=== PATIENT | female | born 1955 | race Caucasian/White ===

== ENCOUNTER 2018-11-01 14:31 | Emergency (ER) | payer MEDICAID ==
[~2018-11-01] VITALS: Ht 144.8 cm; Wt 68.0 kg
[2018-11-01 15:02] VITALS: BP 116/75
== END 2018-11-01 15:21 | disposition home or self-care (01) ==
LOC: ER 14:41
DX: H69.81 Other specified disorders of Eustachian tube, right ear (principal)

== ENCOUNTER 2019-12-17 09:54 | Emergency (ER) | payer MEDICAID, OTHER ==
[~2019-12-17] VITALS: Ht 144.8 cm; Wt 65.3 kg
--- NOTE | 2019-12-17 09:55 | NUR ---
bibdaughter, c/o left flank pain since 4 am today 05/12 ps, +nausea, to ER bed 9, hooked to monitor, changed to hosp gown, warm blanket provided, patient aao x 4, breathing even and unlabored. Dr Mattson at bedside
[2019-12-17 10:22] LABS: APPEARANCE,URINE Clear (CLEAR); BASOPHILS % (AUTO) 0.3 % (0.0-2.0); BILIRUBIN,URINE Negative (NEGATIVE); BLOOD, URINE Trace-intact Ery/uL (NEGATIVE); COLOR,URINE Yellow (YELLOW); HEMATOCRIT 42 % (33-45); HEMOGLOBIN 14.5 g/dL (11.5-14.8); KETONES,URINE Negative (NEGATIVE); LEUKOCYTE ESTERASE ,URINE Negative (NEGATIVE); LYMPHOCYTES % (AUTO) 10.2 % (20.0-44.0); MEAN CORPUSCULAR HGB CONC 34 g/dl (31.0-36.0); MEAN CORPUSCULAR VOLUME 90 fL (82-100); MONOCYTES # (AUTO) 0.3 /CMM (0.1-1.30); MONOCYTES % (AUTO) 3.2 % (2.0-12.0); NEUTROPHILS # (AUTO) 8.4 /CMM (1.8-8.9); NEUTROPHILS % (AUTO) 85.3 % (43.0-81.0); NITRITE, URINE Negative (NEGATIVE); PLATELET COUNT (AUTO) 192 /CMM (150-450); PROTEIN,URINE Negative (NEGATIVE); RED BLOOD CELL COUNT(AUTO) 4.73 MIL/uL (4.0-5.2); UGLUCOSE Negative (NEGATIVE); UROBILINOGEN,URINE 0.2 EU/dL (0.2); WHITE BLOOD COUNT (AUTO) 9.8 K/uL (4.3-11.0)
[2019-12-17] MEDS ORDERED: KETOROLAC TROMETHAMINE 15 MG/ML VIAL ONE (10:23)
[2019-12-17] MEDS ORDERED: ONDANSETRON HCL/PF 4 MG/2 ML VIAL ONE (10:23)
[2019-12-17 10:24] LABS: BACTERIA,URINE Few /HPF (None Seen); RBC,URINE 0-2 /HPF (0-2); SQUAMOUS EPITHELIAL CELL,UR Few /HPF (None Seen); WBC,URINE 0-2 /HPF (0-3)
[2019-12-17] MEDS ORDERED: IV NS 0.9% 1,000 ML BAG IV ONE (10:30)
[2019-12-17] MEDS ORDERED: ONDANSETRON HCL/PF 4 MG/2 ML VIAL IVP ONE (10:30)
[2019-12-17] MEDS ORDERED: KETOROLAC TROMETHAMINE INJ 30 MG/ML VIAL IV ONE (10:30)
[2019-12-17 10:35] LABS: CALCIUM, SERUM 9.2 mg/dL (8.5-10.1); CARBON DIOXIDE 25 mmol/L (21-32); CHLORIDE 104 mmol/L (98-107); GLUCOSE 136 mg/dL (74-106); SODIUM SERUM 139 mmol/L (136-145); UREA NITROGEN, BLOOD 20 mg/dL (7-18)
[2019-12-17 10:41] LABS: ALANINE AMINOTRANSFERASE 29 U/L (12-78); ALBUMIN 4.3 g/dL (3.4-5.0); ALKALINE PHOSPHATASE 80 U/L (46-116); ASPARTATE AMINOTRANSFERASE 24 U/L (15-37); BILIRUBIN,DIRECT 0.1 mg/dL (0.0-0.2); BILIRUBIN,TOTAL 0.4 mg/dL (0.2-1.0); LIPASE 149 U/L (73-393); TOTAL PROTEIN, SERUM 7.6 g/dL (6.4-8.2)
--- NOTE | 2019-12-17 11:29 | NUR ---
IV removed. Catheter intact and site benign. Pressure and 4x4 applied to site. No bleeding noted.Patient discharged to home in stable condition. Written and verbal after care instructions given. Patient verbalizes understanding of instruction.
[2019-12-17 11:30] VITALS: BP 132/81
== END 2019-12-17 11:30 | disposition home or self-care (01) ==
LOC: ER 09:56
DX: N20.0 Calculus of kidney (principal)
CPT/HCPCS: 36415; 74176; 80048; 80076; 81001; 83690; 84484; 85025; 96374; 96375; 99284; J1885; J2405; J7030; 81000-TC

== ENCOUNTER 2019-12-20 09:56 | Inpatient (IN) | payer OTHER ==
[~2019-12-20] VITALS: Ht 170.2 cm; Wt 65.3 kg
--- NOTE | 2019-12-20 10:00 | NUR ---
c/o lower back pain since thursday, was here 3 days ago for same reason noted left kidney stone, 8/10 pain scale. Patient a/ox4, breathing even and unlabored, no sob noted. Needs attended.
[2019-12-20] MEDS ORDERED: KETOROLAC TROMETHAMINE 15 MG/ML VIAL ONE (10:05)
[2019-12-20] MEDS ORDERED: ONDANSETRON HCL/PF 4 MG/2 ML VIAL ONE (10:05)
[2019-12-20 10:16] LABS: BASOPHILS % (AUTO) 0.8 % (0.0-2.0); EOSINOPHILS % (AUTO) 1.3 % (0.0-6.0); HEMATOCRIT 40 % (33-45); HEMOGLOBIN 13.5 g/dL (11.5-14.8); LYMPHOCYTES # (AUTO) 1.1 /CMM (0.8-4.8); LYMPHOCYTES % (AUTO) 22.3 % (20.0-44.0); MEAN CORPUSCULAR HGB CONC 34 g/dl (31.0-36.0); MEAN CORPUSCULAR VOLUME 89 fL (82-100); MONOCYTES # (AUTO) 0.3 /CMM (0.1-1.30); MONOCYTES % (AUTO) 5.6 % (2.0-12.0); NEUTROPHILS # (AUTO) 3.4 /CMM (1.8-8.9); PLATELET COUNT (AUTO) 177 /CMM (150-450); RED BLOOD CELL COUNT(AUTO) 4.42 MIL/uL (4.0-5.2); WHITE BLOOD COUNT (AUTO) 4.8 K/uL (4.3-11.0)
[2019-12-20 10:23] LABS: CALCIUM, SERUM 9.1 mg/dL (8.5-10.1); CREATININE 0.7 mg/dL (0.6-1.3); POTASSIUM 3.9 mmol/L (3.5-5.1)
[2019-12-20 10:29] LABS: BILIRUBIN,DIRECT 0.1 mg/dL (0.0-0.2); BILIRUBIN,TOTAL 0.5 mg/dL (0.2-1.0); TOTAL PROTEIN, SERUM 7.4 g/dL (6.4-8.2)
[2019-12-20] MEDS ORDERED: IV NS 0.9% 1,000 ML BAG IV ONE (10:30)
[2019-12-20] MEDS ORDERED: ONDANSETRON HCL/PF 4 MG/2 ML VIAL IVP ONE (10:30)
[2019-12-20] MEDS ORDERED: KETOROLAC TROMETHAMINE INJ 30 MG/ML VIAL IV ONE ×2 (10:30→21:00)
--- NOTE | 2019-12-20 10:32 | NUR ---
CALLED DR. OJEDA [phone]. LEFT MSG.
[2019-12-20] MEDS ORDERED: ONDA-97 PO (10:49)
[2019-12-20] MEDS ORDERED: IBUP-1955 PO (10:49)
[2019-12-20] MEDS ORDERED: HYDR-3972 PO (10:49)
--- NOTE | 2019-12-20 11:07 | NUR ---
spoke to continuous pillowcase cutter, gave authorization.
[2019-12-20 11:30] LABS: APPEARANCE,URINE Clear (CLEAR); BILIRUBIN,URINE Negative (NEGATIVE); BLOOD, URINE Negative Ery/uL (NEGATIVE); COLOR,URINE Yellow (YELLOW); KETONES,URINE Negative (NEGATIVE); LEUKOCYTE ESTERASE ,URINE Negative (NEGATIVE); NITRITE, URINE Negative (NEGATIVE); PROTEIN,URINE Negative (NEGATIVE); UGLUCOSE Negative (NEGATIVE)
--- NOTE | 2019-12-20 11:39 | NUR ---
called nursing supervisor vegetable farming requested for med surg bed.
--- NOTE | 2019-12-20 11:40 | NUR ---
CALL DAUGHTER [phone] TOYA.
[2019-12-20 11:55] LABS: BACTERIA,URINE None seen /HPF (None Seen); RBC,URINE 0-2 /HPF (0-2); SQUAMOUS EPITHELIAL CELL,UR Few /HPF (None Seen); WBC,URINE 0-2 /HPF (0-3)
--- NOTE | 2019-12-20 12:13 | NUR ---
[id number] [facility]
--- NOTE | 2019-12-20 12:34 | NUR ---
REPORT GIVEN TO CHRISTINA MENDEZ.
--- NOTE | 2019-12-20 12:52 | NUR ---
wheeled patient via gurney accompanied by EMT in no distress. RN at bedside to assume care.
--- NOTE | 2019-12-20 13:00 | NUR ---
RN OPENING NOTES RECEIVED PATIENT VIA GURNEY FROM ED. PT IS AOX4, WELSH SPEAKING, AND AMBULATORY. SHE IS ON RA, TOLERATING WELL, NO SOB OR RESP DISTRESS. SKIN IS INTACT. LUNGS SOUND CLEAR BILATERALLY. ABDOMEN IS SOFT AND NON-DISTENDED. PT COMPLAINS OF ABDOMINAL PAIN THAT RADIATES TO LEFT BACK. EYES ARE PERRLA, FACIAL MOVEMENT SYMMETRICAL. SAFETY MEASURES HAVE BEEN IMPLEMENTED, CALL LIGHT IS WITHIN REACH, BED IS IN LOWEST AND LOCKED POSITION, CRISTAL DE [place]OR[place] FRUIT BUYING GRADER MADE AWARE OF PT ARRIVAL, WILL CONTINUE TO MONITOR FOR ANY CHANGES.
[2019-12-20 13:30] VITALS: BP 141/66
[2019-12-20 13:49] VITALS: BP 141/66
[2019-12-20 16:00] VITALS: BP 138/83
--- NOTE | 2019-12-20 16:09 | NUR ---
RN NOTES PT IS REPORTING PAIN OF 7/10 ON HER ABDOMEN RADIATING TO HER LEFT BACK. HOWEVER, NO ADMITTING ORDERS HAVE BEEN ENTERED YET. SENT MESSAGE AND PAGED EPIC, WILL CONTINUE TO MONITOR FOR ANY CHANGES.
[2019-12-20] MEDS: MORPHINE SULFATE INJ 2 MG/ML DISP.SYRIN IV PRN ×2 (16:50→18:59)
[2019-12-20] MEDS ORDERED: Z GUARD REMEDY 2 OZ OINT TP PRN (17:00)
[2019-12-20] MEDS ORDERED: MAGNESIUM HYDROXIDE 30 ML UDC PO PRN (17:00)
[2019-12-20] MEDS ORDERED: ONDANSETRON HCL/PF 4 MG/2 ML VIAL IVP PRN (17:00)
[2019-12-20] MEDS ORDERED: ACETAMINOPHEN 325 MG TABLET PO PRN (17:00)
[2019-12-20] MEDS: IV NS 0.9% 1,000 ML IV PRN (18:27)
--- NOTE | 2019-12-20 19:28 | NUR ---
RN OPENING NOTES PATIENT IS RESTING IN BED COMFORTABLY AT THIS TIME. NO S.SX OF DISTRESS AT THIS TIME. PT HAS BEEN ENDORSED TO NIGHTSHIFT RN FOR KANDY.
--- NOTE | 2019-12-20 19:35 | NUR ---
MS RN NOTES PATIENT RECEIVED IN BED RESTING. ALERT AND ORIENTED X 4, ESTONIAN SPEAKING. PATIENT ON ROOM AIR, WITH NO SIGNS OF RESPIRATORY DISTRESS AT THIS TIME, WITH NON-LABORED BREATHING. IV ACCESS INTACT AND PATENT. SKIN WARM AND DRY TO TOUCH. PROVIDED COMFORT MEASURES TO PATIENT. SAFETY PRECAUTIONS IN PLACE WITH BED IN THE LOWEST POSITION, BED LOCKED, BILATERAL SIDE RAILS UP, AND CALL LIGHT WITHIN EASY REACH OF THE PATIENT. WILL CONTINUE TO MONITOR PATIENT.
[2019-12-20 20:00] VITALS: BP 148/89
[2019-12-20] MEDS: KETOROLAC TROMETHAMINE INJ 30 MG/ML VIAL IV PRN (20:00)
--- NOTE | 2019-12-20 20:00 | NUR ---
MS RN NOTES PATIENT COMPLAINING OF SHARP PAIN, GRUNTING AND MOANING STATING PAIN LEVEL 10/10. ADMINISTERED PRN TORADOL 15mg. VITAL SIGNS BLOOD PRESSURE 148/89 HEART RATE 83, SPO2 99%. WILL CONTINUE TO MONITOR PATIENT.
--- NOTE | 2019-12-20 20:15 | NUR ---
MS RN NOTES PATIENT STILL MOANING AND RESTLESS, STATING HER PAIN LEVEL HAS NOT DECREASE. COMPLAINING OF SHARP PAIN. NOTIFIED MD CRISTAL DE [place]OR[place]. PER MD TO CHANGE THE FREQUENCY OF MORPHINE TO Q1H. AND GIVE ONE TIME DOSE OF TORADOL 15mg IV. WILL CONTINUE TO MONITOR PATIENT.
[2019-12-20] MEDS ORDERED: MORPHINE SULFATE INJ 2 MG/ML DISP.SYRIN IV PRN (21:00)
--- NOTE | 2019-12-21 03:45 | NUR ---
MS RN NOTES PATIENT COMPLAINING OF SHARP FLANK PAIN AND WAS GETTING RESTLESS, MOANING, AND FACIAL GRIMACE PRESENT. ADMINISTERED PRN MORPHINE 2mg, IV. VITAL SIGNS BLOOD PRESSURE 113/72, HEART RATE 76, RESPIRATORY RATE 18, AND SPO2 SATURATION 98% ON ROOM AIR. WILL RE-ASSESS AND WILL CONTINUE TO MONITOR PATIENT.
[2019-12-21] MEDS: IV NS 0.9% 1,000 ML IV PRN (03:49)
[2019-12-21] MEDS ORDERED: CEFTRIAXONE 1 G in IV D5W 50 ML IV ONE (05:00)
[2019-12-21 06:33] LABS: BASOPHILS % (AUTO) 0.8 % (0.0-2.0); HEMATOCRIT 37 % (33-45); HEMOGLOBIN 12.9 g/dL (11.5-14.8); LYMPHOCYTES # (AUTO) 1.5 /CMM (0.8-4.8); LYMPHOCYTES % (AUTO) 24.8 % (20.0-44.0); MEAN CORPUSCULAR HGB CONC 35 g/dl (31.0-36.0); MEAN CORPUSCULAR VOLUME 88 fL (82-100); MONOCYTES # (AUTO) 0.4 /CMM (0.1-1.30); MONOCYTES % (AUTO) 7.3 % (2.0-12.0); NEUTROPHILS # (AUTO) 3.8 /CMM (1.8-8.9); NEUTROPHILS % (AUTO) 65.1 % (43.0-81.0); PLATELET COUNT (AUTO) 166 /CMM (150-450); WHITE BLOOD COUNT (AUTO) 5.8 K/uL (4.3-11.0)
[2019-12-21 06:38] LABS: ALBUMIN 3.5 g/dL (3.4-5.0); BILIRUBIN,TOTAL 0.4 mg/dL (0.2-1.0); CALCIUM, SERUM 8.5 mg/dL (8.5-10.1); CREATININE 0.6 mg/dL (0.6-1.3); MAGNESIUM 1.9 mg/dL (1.8-2.4); PHOSPHORUS 3.5 mg/dL (2.5-4.9); POTASSIUM 3.4 mmol/L (3.5-5.1); TOTAL PROTEIN, SERUM 6.7 g/dL (6.4-8.2)
--- NOTE | 2019-12-21 06:40 | NUR ---
MS RN NOTES PATIENT IN BED RESTING COMFORTABLY. ALERT AND ORIENTED X 4, LUXEMBOURGISH SPEAKING. PATIENT ON ROOM AIR WITH NO SIGNS OF RESPIRATORY DISTRESS, NO SIGNS OF SOB, AND WITH EVEN NON-LABORED BREATHING. PATIENT SKIN KEPT WARM AND DRY TO TOUCH. IV ACCESS INTACT AND PATENT, INFUSING 75ml/hr OF NORMAL SALINE. PROVIDED COMFORT MEASURES TO PATIENT. MET ALL OF PATIENT NEEDS, SAFETY PRECAUTIONS IN PLACE WITH BED LOCKED, BED IN THE LOWEST POSITION, BILATERAL SIDE RAILS UP, AND CALL LIGHT WITHIN EASY REACH. WILL ENDORSE PLAN OF CARE TO UPCOMING DAYSHIFT NURSE.
[2019-12-21] MEDS ORDERED: MIDAZOLAM HCL 2 MG/2ML VIAL ONE (07:03)
[2019-12-21] MEDS ORDERED: FENTANYL PF 250MCG/5ML AMPUL ONE (07:03)
[2019-12-21] MEDS ORDERED: FAMOTIDINE/PF INJ 20 MG/2 ML VIAL IV ONE (07:04)
[2019-12-21] MEDS ORDERED: ANESTHESIA TRAY IN PYXIS 1 EA TRAY MC ONE (07:08)
--- NOTE | 2019-12-21 07:10 | NUR ---
ms rn received on bed awake,alert,oriented x4,armenyan speaking,not in any form of distress, respirations even and unlabored,no sob noted, lungs are clear,abdomen soft,positive bowel sounds,denies pain at this time, patient will have procedure systoscopy w/ sten placement today,all needs attended.
[2019-12-21] MEDS ORDERED: PANTOPRAZOLE 40 MG TABLET.DR PO SCH (07:30)
--- NOTE | 2019-12-21 07:40 | NUR ---
ms rn patient went down for procedure,all needs attended.
--- NOTE | 2019-12-21 09:20 | NUR ---
ms rn patient came back from procedure,no distress noted, denies pain at this time.
[2019-12-21 09:45] VITALS: BP 99/62
[2019-12-21] MEDS ORDERED: POTASSIUM CHLORIDE 20 MEQ TAB.PRT.SR PO SCH (11:00)
--- NOTE | 2019-12-21 11:00 | NUR ---
ms rn patient denies pain at this time, waiting to be discharge.
--- NOTE | 2019-12-21 13:00 | NUR ---
ms graduate internship instructions given and understood, prescription forwarded to pharmacy, ready to be discharge.
--- NOTE | 2019-12-21 13:30 | NUR ---
ms rn went home accompanied by daughter,no distress noted.
[2019-12-21] MEDS ORDERED: CEPH-569 PO (13:33)
[2019-12-21] MEDS: KETOROLAC TROMETHAMINE INJ 30 MG/ML VIAL IV PRN (14:10)
== END 2019-12-21 14:30 | disposition home or self-care (01) | DRG 465 ==
LOC: ER 09:56 → MED 12:34
PROVIDERS: ADMIT Nurse Practitioner Acute Care; ATTEND Nurse Practitioner Acute Care
PROC: 0T778DZ Dilation of Left Ureter with Intraluminal Device, Via Natural or Artificial Opening Endoscopic (ICD-10-PCS; principal; 2019-12-20)
DX: N13.2 Hydronephrosis with renal and ureteral calculous obstruction (principal); K76.89 Other specified diseases of liver; Z79.899 Other long term (current) drug therapy; Z90.49 Acquired absence of other specified parts of digestive tract; Z87.442 Personal history of urinary calculi
CPT/HCPCS: 36415; 71045-TC; 74018; 80048-TC; 80053-TC; 80061-TC; 80076-TC; 81000-TC; 82962-TC; 83735-TC; 84100-TC; 85025-TC; 85610-TC; 85730-TC; 86850-TC; 87081-TC; G0378; J0690; J0696; J1885; J2250; J2270; J2405; J2704; J2765; J3010; J3490; J7030; J7060

== ENCOUNTER 2021-06-09 11:59 | Emergency (ER) | payer OTHER ==
[~2021-06-09] VITALS: Ht 152.4 cm; Wt 65.0 kg
[~2021-06-09 11:59] MED LIST: CEPH-569 PO; HYDR-3972 PO; IBUP-1955 PO; ONDA-97 PO
[2021-06-09 12:09] VITALS: BP 113/63
--- NOTE | 2021-06-09 12:15 | NUR ---
BIB DAUGHTER FOR C/O DIZZINESS. ALERT AND ORIENTED X4. DENIES SOB. RESPIRATION REGULAR AND UNLABORED. WILL CONTINUE TO MONITOR THE PATIENT.
[2021-06-09] MEDS ORDERED: MECL-159 PO (12:45)
[2021-06-09] MEDS ORDERED: AMOX-430 PO (12:45)
--- NOTE | 2021-06-09 12:55 | NUR ---
Patient discharged to home in stable condition. Written and verbal after care instructions given. Patient verbalizes understanding of instruction.
== END 2021-06-09 13:00 | disposition home or self-care (01) ==
LOC: ER 12:05
DX: R42 Dizziness and giddiness (principal); J32.9 Chronic sinusitis, unspecified; Z79.899 Other long term (current) drug therapy

== ENCOUNTER 2021-12-25 15:30 | Emergency (ER) | payer OTHER ==
[~2021-12-25] VITALS: Ht 144.8 cm; Wt 64.9 kg
[~2021-12-25 15:30] MED LIST changes: +AMOX-430 PO; +MECL-159 PO
--- NOTE | 2021-12-25 15:47 | NUR ---
BIBS C/O RLQ PAIN ON&OFF x 1WEEK, DENIES N/V/D, 02/09 PS. TO ER BED 4, HOOKED TO MONITOR, CHANGED TO HOSP GOWN, WARM BLANKET PROVIDED. PATIENT AAO x 4. BREATHING EVEN AND UNLABORED. AWAITING MD ERAZO
--- NOTE | 2021-12-25 16:00 | NUR ---
URINE SAMPLE COLLECTED AND SENT TO LAB
[2021-12-25 16:17] LABS: CALCIUM, SERUM 9.2 mg/dL (8.5-10.1); CREATININE 0.6 mg/dL (0.6-1.3); POTASSIUM 3.9 mmol/L (3.5-5.1)
--- NOTE | 2021-12-25 16:18 | NUR ---
DR RIVERA AT BEDSIDE
--- NOTE | 2021-12-25 16:21 | NUR ---
WHEELED OUT VIA WHEELCHAIR FOR CT SCAN
[2021-12-25 16:23] LABS: ALBUMIN 4.5 g/dL (3.4-5.0); BILIRUBIN,DIRECT 0.1 mg/dL (0.0-0.2); BILIRUBIN,TOTAL 0.4 mg/dL (0.2-1.0); TOTAL PROTEIN, SERUM 7.7 g/dL (6.4-8.2)
[2021-12-25 16:27] LABS: BASOPHILS % (AUTO) 0.6 % (0.0-2.0); EOSINOPHILS % (AUTO) 1.2 % (0.0-6.0); HEMATOCRIT 42 % (33-45); HEMOGLOBIN 14.5 g/dL (11.5-14.8); LYMPHOCYTES # (AUTO) 1.5 K/uL (0.8-4.8); LYMPHOCYTES % (AUTO) 18.8 % (20.0-44.0); MEAN CORPUSCULAR HGB CONC 34 g/dl (31.0-36.0); MEAN CORPUSCULAR VOLUME 88 fL (82-100); MONOCYTES # (AUTO) 0.3 K/uL (0.1-1.30); MONOCYTES % (AUTO) 3.2 % (2.0-12.0); NEUTROPHILS # (AUTO) 6.1 K/uL (1.8-8.9); NEUTROPHILS % (AUTO) 76.2 % (43.0-81.0); PLATELET COUNT (AUTO) 227 K/uL (150-450); RED BLOOD CELL COUNT(AUTO) 4.82 MIL/uL (4.0-5.2)
[2021-12-25 17:13] LABS: BILIRUBIN,URINE NEGATIVE (NEGATIVE); COLOR,URINE YELLOW (YELLOW); LEUKOCYTE ESTERASE ,URINE NEGATIVE (NEGATIVE); NITRITE, URINE POSITIVE (NEGATIVE); PROTEIN,URINE NEGATIVE (NEGATIVE); UGLUCOSE NEGATIVE (NEGATIVE); UROBILINOGEN,URINE 0.2 EU/dL (0.2)
[2021-12-25 17:42] LABS: RBC,URINE 0-2 /HPF (0-2); WBC,URINE 0-2 /HPF (0-3)
[2021-12-25 17:43] LABS: BACTERIA,URINE Rare /HPF (None Seen); SQUAMOUS EPITHELIAL CELL,UR 0-2 /HPF (None Seen)
--- NOTE | 2021-12-25 19:12 | NUR ---
DCPatient discharged to home in stable condition. Written and verbal after care instructions given. Patient verbalizes understanding of instruction.
[2021-12-25 19:39] VITALS: BP 126/72
== END 2021-12-25 19:12 | disposition home or self-care (01) ==
LOC: ER 15:37
DX: R10.31 Right lower quadrant pain (principal); K57.30 Diverticulosis of large intestine without perforation or abscess without bleeding; N20.0 Calculus of kidney; Z79.899 Other long term (current) drug therapy
CPT/HCPCS: 36415; 76705-TC; 80048-TC; 80076-TC; 81001; 83690-TC; 85025-TC; 87086-TC